=== PATIENT | male | born 1975 | race African-American/Black ===

== ENCOUNTER 2019-11-16 17:55 | Emergency (ER) | payer MEDICAID ==
[~2019-11-16] VITALS: Ht 185.4 cm; Wt 110.0 kg
[2019-11-16 18:05] VITALS: BP 143/101
== END 2019-11-16 22:08 | disposition left against medical advice (07) ==
LOC: ER 17:55
DX: Z53.21 Procedure and treatment not carried out due to patient leaving prior to being seen by health care provider (principal)